=== PATIENT | male | born 1955 | race Caucasian/White ===

== ENCOUNTER 2020-02-18 05:00 | Day surgery (SDC) | payer OTHER, MEDICARE ==
[2020-02-17 12:49] VITALS: BMI 35.9
[2020-02-18 08:28] VITALS: TEMP 98.8
[2020-02-18 09:04] VITALS: BP 126/74; PULSE 74
--- NOTE | 2020-02-20 11:14 | PATH ---
Surgical Pathology Report Patient Name: SOPHIA MELTON [facility]. Rec. #: [id number] /Age/Gender: 1955 (Age: 64) / M Account: [id number] Location: U-ENDOSCOPY Taken: 02/18/2020 Received: 02/18/2020 Reported: 02/20/2020 Physicians: Clement Hsu M.D. Specimen(s) Received A: BODY AND ANTRUM B: RIGHT COLON POLYP #1 C: RIGHT COLON POLYP #2 D: TRANSVERSE COLON POLYP Clinical History Screening, history of polyp, cirrhosis Postoperative diagnosis: No varices, polyps, hemorrhoids Final Diagnosis A. STOMACH, BODY AND ANTRUM, BIOPSY: GASTRIC ANTRAL AND BODY MUCOSA WITH MILD CHRONIC GASTRITIS. IMMUNOHISTOCHEMICAL STAIN FOR H. PYLORI IS NEGATIVE. B. COLON, POLYP #1, RIGHT, POLYPECTOMY: TUBULAR ADENOMA. C. COLON, POLYP #2, RIGHT, BIOPSY: TUBULAR ADENOMA. D. TRANSVERSE COLON, POLYP, POLYPECTOMY: TUBULAR ADENOMA. Positive and negative controls (internal if applicable) show appropriate results. Electronically Signed Ashlyn Gomez M.D. Gross Description A. Received in formalin, labeled "biopsy body and antrum" are 2 valencia, irregular portions of soft tissue measuring 0.3 and 0.4 cm. in greatest dimension. The specimens are submitted in toto in one cassette. B. Received in formalin, labeled "right colon polyp #1" is a valencia, irregular portion of soft tissue measuring 0.2 cm. in greatest dimension. The specimen is submitted in toto in one cassette. C. Received in formalin, labeled "biopsy right colon polyp #2" is a valencia, irregular portion of soft tissue measuring 0.3 cm. in greatest dimension. The specimen is submitted in toto in one cassette. D. Received in formalin, labeled "transverse colon polyp" is a valencia, polypoid portion of soft tissue measuring 0.6 cm. in greatest dimension. The specimen is submitted in toto in one cassette. 02/18/2020 saudi02/18/2020
== END 2020-02-18 09:18 | disposition home or self-care (01) ==
LOC: JASU-ENDO 05:00
PROVIDERS: ATTEND Internal Medicine Gastroenterology
PROC: 0DBL8ZX Excision of Transverse Colon, Via Natural or Artificial Opening Endoscopic, Diagnostic (ICD-10-PCS; 2020-02-18)
PROC: 0DB68ZX Excision of Stomach, Via Natural or Artificial Opening Endoscopic, Diagnostic (ICD-10-PCS; 2020-02-18)
PROC: 0DBK8ZX Excision of Ascending Colon, Via Natural or Artificial Opening Endoscopic, Diagnostic (ICD-10-PCS; principal; 2020-02-18 08:00)
DX: Z86.010 Personal history of colon polyps (principal); Z13.810 Encounter for screening for upper gastrointestinal disorder; D12.2 Benign neoplasm of ascending colon; D12.3 Benign neoplasm of transverse colon; K64.8 Other hemorrhoids; K29.50 Unspecified chronic gastritis without bleeding; I10 Essential (primary) hypertension; E11.9 Type 2 diabetes mellitus without complications; Z79.4 Long term (current) use of insulin; M10.9 Gout, unspecified; F25.9 Schizoaffective disorder, unspecified; K76.0 Fatty (change of) liver, not elsewhere classified
CPT/HCPCS: 82962; 88305-TC; 88342-TC